=== PATIENT | male | born 2005 | race Caucasian/White ===

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

== ENCOUNTER 2024-08-03 14:27 | Emergency (ER) | payer MEDICAID, OTHER, SELFPAY ==
[2024-08-03] MEDS ORDERED: Ketorolac Tromethamine 30 MG (1 mL) VIAL ONE (15:06)
[2024-08-03] MEDS ORDERED: Acetaminophen 325 MG TAB ONE (15:06)
[2024-08-03] MEDS ORDERED: Ondansetron PF 4 MG/2 ML Vial ONE (15:06)
[2024-08-03 16:00] LABS: Hemoglobin 13.6 g/dL (13.5-17.5); Mean Corpuscular HGB CONC 34.9 g/dL (32.0-36.0); Mean Corpuscular Hemoglobin 27.5 pg (27.0-33.0); Mean Corpuscular Volume 78.9 fL (81.2-95.1); Mean Platelet Volume 9.2 fL (7.4-10.4); RBC Distribution Width 12.1 % (11.5-14.5); Red Blood Cell (RBC) Count 4.94 10x6/uL (4.32-5.72); White Blood Cell (WBC) Count 7.42 10x3/uL (3.5-10.5)
[2024-08-03 16:01] LABS: #Basophils Less than 0.03 10x3/uL (0.0-0.2); #Eosinophils Less than 0.03 10x3/uL (0.0-0.5); #Monocytes 0.43 10x3/uL (0.0-1.1); #Neutrophils 6.57 10x3/uL (1.5-8.4); %Basophils 0.3 % (0.0-2.0); %Lymphocytes 5.3 % (18.0-47.0); %Monocytes 5.8 % (0.0-10.0); %Neutrophils 88.5 % (40.0-75.0)
[2024-08-03 16:11] LABS: ALT (SGPT) 13 U/L (Less than 45); AST (SGOT) 22 U/L (11-34); Albumin 4.4 g/dL (3.1-4.5); Alkaline Phosphatase 54 U/L (40-110); Anion Gap 12 mmol/L (10-20); BUN (Urea Nitrogen) 17 mg/dL (8.9-20.6); Calc. Creatinine Clearance 0 mL/min (70-130); Calcium 9.4 mg/dL (7.8-10.44); Carbon Dioxide 22 mmol/L (22-29); Chloride 108 mmol/L (98-107); Estimated GFR 100; Globulin 2.7 g/dL (2.4-3.5); Glucose 86 mg/dL (70-105); Potassium 3.4 mmol/L (3.5-5.1); Protein, Total 7.1 g/dL (6.0-8.3); Sodium 139 mmol/L (136-145)
[2024-08-03 16:34] LABS: Platelet Count 117 10x3/uL (150-450)
[2024-08-03 18:43] LABS: Platelet Adequacy Comment Appears Decreased
[2024-08-03 18:44] LABS: RBC Morphology Within Normal Limits
== END 2024-08-03 17:20 | disposition home or self-care (01) ==
LOC: CSHERS 14:27
DX: J11.1 Influenza due to unidentified influenza virus with other respiratory manifestations (principal)
CPT/HCPCS: 71046; 80053; 85025; 87428; 93005; 96361; 96374; J1885; J2405

== ENCOUNTER 2025-03-04 19:37 | Emergency (ER) | payer SELFPAY ==
[2025-03-04 20:27] LABS: #Basophils 0.04 10x3/uL (0.0-0.2); #Eosinophils 0.03 10x3/uL (0.0-0.5); #Monocytes 0.53 10x3/uL (0.0-1.1); #Neutrophils 4.42 10x3/uL (1.5-8.4); %Basophils 0.6 % (0.0-2.0); %Eosinophils 0.4 % (0.0-6.0); %Lymphocytes 28.2 % (18.0-47.0); %Monocytes 7.6 % (0.0-10.0); %Neutrophils 63.1 % (40.0-75.0); Hematocrit 41.6 % (38.8-50.0); Hemoglobin 14.5 g/dL (13.5-17.5); Mean Corpuscular Hemoglobin 27.7 pg (27.0-33.0); Mean Corpuscular Volume 79.4 fL (81.2-95.1); Platelet Count 172 10x3/uL (150-450); Red Blood Cell (RBC) Count 5.24 10x6/uL (4.32-5.72); White Blood Cell (WBC) Count 7.01 10x3/uL (3.5-10.5)
[2025-03-04 20:54] LABS: ALT (SGPT) 14 U/L (Less than 45); AST (SGOT) 22 U/L (11-34); Albumin 5.2 g/dL (3.1-4.5); Alkaline Phosphatase 58 U/L (40-110); Anion Gap 17 mmol/L (10-20); BUN (Urea Nitrogen) 26 mg/dL (8.9-20.6); Bilirubin, Total 1.7 mg/dL (0.3-1.2); CK (CPK) 245 U/L (30-200); Calc. Creatinine Clearance 0 mL/min (70-130); Calcium 10.3 mg/dL (7.8-10.44); Carbon Dioxide 24 mmol/L (22-29); Chloride 103 mmol/L (98-107); Globulin 2.6 g/dL (2.4-3.5); Glucose 79 mg/dL (70-105); Lipase 13 U/L (8-78); Potassium 4.2 mmol/L (3.5-5.1); Sodium 140 mmol/L (136-145)
[2025-03-04 21:00] LABS: Troponin I Less than 0.010 ng/mL (< 0.028)
[2025-03-04] MEDS ORDERED: Ketorolac Tromethamine 30 MG (1 mL) VIAL ONE (21:14)
== END 2025-03-04 21:27 | disposition home or self-care (01) ==
LOC: CSHERS 19:37
DX: R07.9 Chest pain, unspecified (principal)
CPT/HCPCS: 36415; 71045; 80053; 82550; 83690; 84484; 85025; 93005; J1885